=== PATIENT | female | born 1950 | race Caucasian/White ===

== ENCOUNTER 2024-03-10 10:30 | Outpatient (OUT) | payer MEDICARE, MEDICAID, SELFPAY ==
--- NOTE | 2024-03-10 | XR_ITS ---
The [address] [address] Patient Name: ANGELICA SORIANO MRN: [id number] date: 1950 Sex: F Assigned Patient Location: Current Patient Location: .[facility] Accession/Order Number: [id number] Exam Date: 03/10/2024 10:35 Report Date: 03/10/2024 14:26 At the request of: JEANE MICHAEL Procedure: XR ankle RT min 3V PROCEDURE: XR ankle RT min 3V COMPARISON: None. HISTORY: RIGHT ANKLE PAIN FINDINGS: BONES:Acute oblique fracture through the distal fibula at the level of the syndesmosis with distraction up to 2 mm. No additional fracture. No dislocation. Degenerative changes with marginal osteophyte formation. Enthesopathic spurring of the calcaneus SOFT TISSUES:Negative. No visible soft tissue swelling. EFFUSION:None visible. OTHER: Call result initiated through operations. XR/XR ankle RT min 3V IMPRESSION: Acute oblique mildly displaced distal fibular fracture at the syndesmosis level Electronically authenticated by: CECILE WEBER Date: 03/10/2024 14:26
== END 2024-03-10 10:31 | disposition home or self-care (01) ==
LOC: EC 10:31
PROVIDERS: PCP Family Medicine; Visit Provider Orthopaedic Surgery
DX: M25.571 Pain in right ankle and joints of right foot (principal); S89.391A Other physeal fracture of lower end of right fibula, initial encounter for closed fracture
CPT/HCPCS: 73610

== ENCOUNTER 2024-03-10 13:45 | Inpatient (IN) | payer OTHER, SELFPAY ==
[2024-03-10] VITALS (23 sets, daily range): BP systolic 114–133; BP diastolic 73–98; PULSE 67–112; TEMP 36.4–36.8; O2SAT 82–99; BMI 39.9; BMI 43.7
--- NOTE | 2024-03-10 13:49 | ECG_ITS ---
The [facility] Test Date: 2024-03-10 Pat Name: ANGELICA SORIANO Department: Room: - Gender: Female Java Mobile Developer: : 1950 Requested By: MANOJ CHAPMAN Order Number: [id number] Reading MD: GREGORIO RUVALCABA Measurements Intervals Lee Rate: 102 P: -[id number] MD: [id number] QRS: 11 QRSD: 86 T: 189 QT: 330 QTc: 388 Interpretive Statements 60354 Atrial fibrillation with rapid ventricular response with aberrant conduction, or ventricular premature complexes 3234 Anteroseptal myocardial infarction, age undetermined 3614 Cannot rule out inferior myocardial infarction, age undetermined [address] depression, probably digitalis effect 38666 Twave abnormality, possible lateral ischemia or digitalis effect 8102 Low QRS voltage in chest leads 9150 abnormal ECG Electronically Signed On 03-10-2024 22:30:56 EDT by GREGORIO RUVALCABA
--- NOTE | 2024-03-10 13:50 | ED_ITS ---
<Statement entered by Yandel Frederick MD - 03/10/24 18:48> This documentation has been reviewed and approved. Chart was sent to my inbox for administrative and group management purposes. I was the attending physicians working during the patients hospital course. The patient was seen and managed independently by the MLP. I did not personally see or evaluate this patient, nor was I involved in the patient medical decision making process or plans of care. Pt was dispositioned by the MLP with complete independence and I was not involved in planning, or disposition. I was available for consultation should the MLP request during this patients ED stay. HPI HPI - General Adult General Chief complaint: Altered Mental Status Stated complaint: CONFUSION Time Seen by Provider: 03/10/24 13:49 Source: patient, EMR and medical record Mode of arrival: ambulance Limitations: altered mental status History of Present Illness HPI narrative: Patient is a 74-year-old female who presents to the emergency department by EMS from the [facility] where she is currently a resident for evaluation of altered mental status that was noted this afternoon. Patient was found to have a right fibular fracture recently and on [facility] from an orthopedic appointment this afternoon, her son-in-law felt that she was more confused than normal. Last known well per the nurse was 8 AM this morning on giving the patient her morning pills. This nurse did state during report that the patient has been refusing food, refusing to ambulate and talking less over the last several days. No known falls or injuries. Patient is a DNR comfort care. Related Data Home Medications ?Medication ?Instructions ?Recorded ?Confirmed acetaminophen 325 mg capsule 650 mg PO Q4H PRN fever or pain 03/10/24 03/10/24 alprazolam 0.25 mg tablet (Xanax) 0.25 mg PO BID PRN anxiety 03/10/24 03/10/24 apixaban 5 mg tablet (Eliquis) 5 mg PO Q12H 03/10/24 03/10/24 atorvastatin 20 mg tablet 20 mg PO QPM 03/10/24 03/10/24 bisacodyl 10 mg rectal suppository 10 mg DE DAILY PRN constipation 03/10/24 03/10/24 (Laxative (bisacodyl)) bumetanide 2 mg tablet 2 mg PO .BIDAC 03/10/24 03/10/24 duloxetine 60 mg capsule,delayed 60 mg PO DAILY 03/10/24 03/10/24 release folic acid 1 mg tablet 1 mg PO DAILY 03/10/24 03/10/24 levothyroxine 50 mcg tablet 50 mcg PO DAILY 03/10/24 03/10/24 (Euthyrox) magnesium oxide 400 mg PO DAILY 03/10/24 03/10/24 metoprolol tartrate 25 mg tablet 25 mg PO Q12H 03/10/24 03/10/24 mirtazapine 30 mg tablet 30 mg PO QPM 03/10/24 03/10/24 polyethylene glycol 3350 17 17 g PO DAILY 03/10/24 03/10/24 gram/dose oral powder (Miralax) quetiapine 25 mg tablet 25 mg PO QPM 03/10/24 03/10/24 sennosides 8.6 mg tablet (Natural 17.2 mg PO BID 03/10/24 03/10/24 Senna Laxative) spironolactone 25 mg tablet 25 mg PO Q12H 03/10/24 03/10/24 trazodone 50 mg tablet 50 mg PO QPM 03/10/24 03/10/24 Allergies Allergy/AdvReac Type Severity Reaction Status Date / Time bee venom protein (honey bee) Allergy Unknown Verified 03/10/24 15:44 Penicillins Allergy Unknown Verified 03/10/24 15:44 Sulfa (Sulfonamide Allergy Unknown Verified 03/10/24 15:44 Antibiotics) theophylline Allergy Unknown Verified 03/10/24 15:44 Opioid HPI Opioid Management Most Recent Opioid Data: No Data to Display Review of Systems ROS Status of ROS unobtainable due to medical condition and unobtainable due to mental status Exam Narrative Exam Narrative: Gen.: Awake, alert, in no distress, moves all extremities and follows commands, does not answer all questions Head: Normocephalic, atraumatic ENT: Moist mucous membranes Respiratory: No respiratory distress, lungs clear bilaterally Cardio: Irregular, tachycardic Gastrointestinal: Abdomen is soft, distended but nontender, well-healed surgical incision over the midline abdomen Extremities: Moves extremities equally, bruising noted to the right ankle Psych: Normal mood and affect Neuro: Confused to place and time, however answer some questions appropriately with clear speech, moves all extremities Skin: Warm, dry, intact Constitutional Vital Signs, click to edit/add: Last Vital Signs Temp 98.1 F 03/10/24 13:51 Pulse 97 H 03/10/24 16:20 Resp 25 H 03/10/24 15:30 BP 133/98 H 03/10/24 16:14 Pulse Ox 82 L 03/10/24 16:14 O2 Del Method Nasal Cannula 03/10/24 14:30 O2 Flow Rate 2 03/10/24 14:30 Course Vital Signs Vital signs: Vital Signs Temperature 98.1 F 03/10/24 13:51 Pulse Rate 67 03/10/24 13:51 Respiratory Rate 16 03/10/24 13:51 Blood Pressure 120/98 H 03/10/24 13:51 Pulse Oximetry 97 03/10/24 13:51 Oxygen Delivery Method Nasal Cannula 03/10/24 13:51 Oxygen Delivery Flow Rate 2 03/10/24 13:51 Temperature 98.1 F 03/10/24 13:51 Pulse Rate 97 H 03/10/24 16:20 Respiratory Rate 25 H 03/10/24 15:30 Blood Pressure 133/98 H 03/10/24 16:14 Pulse Oximetry 82 L 03/10/24 16:14 Oxygen Delivery Method Nasal Cannula 03/10/24 14:30 Oxygen Delivery Flow Rate 2 03/10/24 14:30 Medical Decision Making MDM Narrative Medical decision making narrative: [facility]'s prison records were sent over with her, she is a DNR comfort care which was signed on 03/01/2024. [facility] records show that she is anticoagulated with Eliquis for history of A-fib. Her nurse at the [facility] was apparently unaware of this. She is hemodynamically stable in the ER, laboratory test, urine specimen were ordered for the patient and she was sent for CT of the brain and chest x-ray. Records from [facility] show that the patient was sent there on 02/22/2024, it was suspected that she had CHF and she underwent a right heart catheterization. She also has a history of cardiomyopathy. Nephrology and general surgery were consulted for the patient while she was hospitalized. She was diuresed while hospitalized. Records from [facility] show her most recent creatinine was 0.56 and today her creatinine is 2.8. She is also found to have mild hypokalemia, urinary tract infection treated with Rocephin. Case is discussed with hospitalist, given the patient's significant change in mental status today associated with an apparently acute kidney injury, she is admitted for hydration and treatment of urinary tract infection. She is hemodynamically stable at time of admission. SUPERVISED APC VISIT, PHYSICIAN ATTESTATION: Based on the medical record the care appears appropriate. ? Medical Records Medical records reviewed: Yes I reviewed the patient's medical records Lab Data Lab results reviewed: Yes I reviewed the patient's lab results Labs: Lab Results 03/10/24 03/10/24 Range/Units 14:07 14:37 WBC 15.1 H (4.0-11.0) 10^3/uL RBC 4.63 (4.20-5.40) 10^6/uL Hgb 15.8 (12.0-16.0) g/dL Hct 47.1 (36.0-48.0) % MCV 101.7 H (81.0-99.0) fL MCH 34.1 H (26.7-34.0) pg MCHC 33.5 (29.9-35.2) g/dL RDW 18.4 H (11.0-15.0) % Plt Count 243 (150-450) 10^3/uL MPV 12.9 (9.5-13.5) fL Neut % (Auto) 83.1 H (43.0-75.0) % Lymph % (Auto) 7.6 L (20.5-60.0) % Faulk % (Auto) 6.7 (1.7-12.0) % Eos % (Auto) 0.1 L (0.9-7.0) % Baso % (Auto) 0.5 (0.2-2.0) % Neut # (Auto) 12.6 H (1.4-6.5) 10^3/uL Lymph # (Auto) 1.2 (1.2-3.8) 10^3/uL Faulk # (Auto) 1.0 H (0.3-0.8) 10^3/uL Eos # (Auto) 0.0 (0.0-0.7) 10^3/uL Baso # (Auto) 0.1 (0.0-0.1) 10^3/uL Abs Immat Gran (auto) 0.31 H (0.00-0.03) 10^3/uL Imm/Tot Granulo (auto) 2.0 H (0.0-0.5) % PT 11.9 H (9.0-11.6) sec INR 1.14 VBG pH 7.521 H (7.330-7.430) VBG pCO2 33.6 L (40.0-52.0) mmHg Sodium 140 (136-145) mmol/L Potassium 3.0 L (3.5-5.1) mmol/L Chloride 96 L (98-107) mmol/L Carbon Dioxide 27.1 (21.0-32.0) mmol/L Anion Gap 19.9 BUN 55.0 H (7.0-18.0) mg/dL Creatinine 2.83 H (0.55-1.02) mg/dL Est GFR ( Amer) 20 L (>=60 mL/min/1.73m^2) Est GFR (Non-Af Amer) 16 L (>=60 mL/min/1.73m^2) BUN/Creatinine Ratio 19.4 Glucose 164 H (74-106) mg/dL Lactate 4.9 H* (0.4-2.0) mmol/L Calcium 10.1 (8.5-10.1) mg/dL Total Bilirubin 2.8 H (0.2-1.0) mg/dL AST 89 H (15-37) U/L ALT 82 H (14-59) U/L Alkaline Phosphatase 95 (46-116) U/L Troponin I High Sens 66.4 H* (4.0-51.3) pg/mL Total Protein 7.3 (6.4-8.2) g/dL Albumin 3.9 (3.4-5.0) g/dL Globulin 3.4 g/dL Albumin/Globulin Ratio 1.1 TSH 15.139 H (0.358-3.740) uIU/mL Free T4 1.09 (0.76-1.46) ng/dL Free T3 2.00 L (2.18-3.98) pg/mL Urine Color Lt. yellow (YELLOW) Urine Clarity Sl cloudy (CLEAR) Urine pH 6.0 (5.0-9.0) Ur Specific [place] 1.020 (1.005-1.025) Urine Protein Negative (NEG/TRACE) mg/dL Urine Glucose (UA) Negative (NEGATIVE) mg/dL Urine Ketones Trace A (NEGATIVE) mg/dL Urine Occult Blood Trace-i (NEGATIVE) Urine Nitrite Negative (NEGATIVE) Urine Bilirubin Small A (NEGATIVE) Urine Urobilinogen 1.0 (0.2-1.0) EU/dL Ur Leukocyte Esterase Moderate A (NEGATIVE) Urine RBC 0-2 (0-2) #/HPF Urine WBC 50-75 A (NONE SEEN) #/HPF Ur Squamous Epith Cells Moderate A (NONE/RARE) #/LPF Ur Transition Epith Cell Few A (NONE SEEN) #/LPF Urine Crystals None seen (None Seen) #/HPF Urine Bacteria Large A (NONE SEEN) #/HPF Urine Casts Seen A (NONE SEEN) #/LPF Hyaline Casts Moderate Urine Mucus Small A (NONE SEEN) Urine Yeast Seen A (NONE SEEN) Ur Culture Indicated? Yes Imaging Data CT scan - head: Attestation: I have reviewed the pertinent imaging results. Radiologist's impression: ITS Impressions Chest X-Ray 03/10/24 14:30 IMPRESSION: Clear lungs Electronically authenticated by: CECILE WEBER Date: 03/10/2024 14:[address] 03/10/24 14:30 IMPRESSION: 1. Stable CT of the head. No acute findings. No hemorrhage or mass. 2. Brain atrophy is stable. No hydrocephalus. Electronically authenticated by: YUMIKO CHEUNG Date: 03/10/2024 14:56 ECG Data Attestation: I personally reviewed and interpreted this ECG as follows: (A-fib with RVR at a rate of 102, artifact noted with no obvious acute ST elevation. EKG reviewed by attending physician) Discharge Plan Discharge Chief Complaint: Altered Mental Status Clinical Impression: Altered mental status, Acute kidney injury, Acute UTI, Hypokalemia Patient Disposition: Admitted as Observation Time of Disposition Decision: 15:26 Condition: Good
[2024-03-10] MEDS: 0.9 % SODIUM CHLORIDE 1,000 ML 1000 ML IV (14:12)
[2024-03-10 14:13] LABS: Basophils Absolute Auto 0.1 10^3/uL (0.0-0.1); Basophils Percent Auto 0.5 % (0.2-2.0); Eosinophils Percent Auto 0.1 % (0.9-7.0); Hematocrit 47.1 % (36.0-48.0); Hemoglobin 15.8 g/dL (12.0-16.0); Immature Granulocytes Abs Auto 0.31 10^3/uL (0.00-0.03); Lymphocytes Absolute Auto 1.2 10^3/uL (1.2-3.8); Lymphocytes Percent Auto 7.6 % (20.5-60.0); Mean Corpuscular HGB Conc 33.5 g/dL (29.9-35.2); Mean Corpuscular Hemoglobin 34.1 pg (26.7-34.0); Mean Corpuscular Volume 101.7 fL (81.0-99.0); Mean Platelet Volume 12.9 fL (9.5-13.5); Monocytes Percent Auto 6.7 % (1.7-12.0); Neutrophils Absolute Auto 12.6 10^3/uL (1.4-6.5); Neutrophils Percent Auto 83.1 % (43.0-75.0); Platelet Count 243 10^3/uL (150-450); Red Blood Count 4.63 10^6/uL (4.20-5.40); Red Cell Distribution Width 18.4 % (11.0-15.0); White Blood Count 15.1 10^3/uL (4.0-11.0)
[2024-03-10 14:17] LABS: PCO2 VBG 33.6 mmHg (40.0-52.0); pH VBG 7.521 (7.330-7.430)
[2024-03-10 14:29] LABS: INR 1.14; Prothrombin Time 11.9 sec (9.0-11.6)
--- NOTE | 2024-03-10 14:30 | CT_ITS ---
[address] [address] Patient Name: ANGELICA SORIANO MRN: [id number] date: 1950 Sex: F Assigned Patient Location: ED.MAIN Current Patient Location: Accession/Order Number: [id number] Exam Date: 03/10/2024 14:21 Report Date: 03/10/2024 14:56 At the request of: FABIAN KARIMI Procedure: CT head/brain wo con CT head without contrast, 03/10/2024. HISTORY: Altered mental status. Confusion. COMPARISON: CT head, 11/06/2021. TECHNIQUE: Noncontrast axial CT images obtained of the head. Reconstructions obtained in the sagittal and coronal planes. Dose reduction techniques were achieved by using automated exposure control and/or adjustment of mA and/or kV according to patient size and/or use of iterative reconstruction technique. FINDINGS: Paranasal sinuses are clear. Middle ear cavities clear. Mastoid air cells are clear. No skull lesion. Nasopharynx normal. Prior cataract surgery. Extracranial soft tissue structures unremarkable. Moderate brain atrophy. No obstructive hydrocephalus. No extra-axial fluid collection. No acute hemorrhage. No mass. CT/CT head/brain wo con IMPRESSION: 1. Stable CT of the head. No acute findings. No hemorrhage or mass. 2. Brain atrophy is stable. No hydrocephalus. Electronically authenticated by: YUMIKO CHEUNG Date: 03/10/2024 14:56
--- NOTE | 2024-03-10 14:30 | XR_ITS ---
The [address] [address] Patient Name: ANGELICA SORIANO MRN: [id number] date: 1950 Sex: F Assigned Patient Location: ED.MAIN Current Patient Location: ER Accession/Order Number: [id number] Exam Date: 03/10/2024 14:21 Report Date: 03/10/2024 14:56 At the request of: FABIAN KARIMI Procedure: XR chest 1V EXAMINATION: XR chest 1V HISTORY: Altered mental status COMPARISON: No relevant comparison available. TECHNIQUE: AP portable FINDINGS: LUNGS: No significant pulmonary parenchymal abnormalities. VASCULATURE: No increased pulmonary vasculature. PLEURA: No pneumothorax, effusion, or pleural thickening. Elevation the right hemidiaphragm CARDIAC: No cardiomegaly or cardiac silhouette abnormality. MEDIASTINUM: No visible mass or adenopathy. 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 OTHER: Negative. XR/XR chest 1V IMPRESSION: Clear lungs Electronically authenticated by: CECILE WEBER Date: 03/10/2024 14:56
[2024-03-10 14:33] LABS: Alanine Aminotransferase 82 U/L (14-59); Albumin Globulin Ratio 1.1; Albumin Level 3.9 g/dL (3.4-5.0); Alkaline Phosphatase 95 U/L (46-116); Anion Gap 19.9; Aspartate Amino Transferase 89 U/L (15-37); BUN Creatinine Ratio 19.4; Bilirubin Total 2.8 mg/dL (0.2-1.0); Calcium 10.1 mg/dL (8.5-10.1); Carbon Dioxide 27.1 mmol/L (21.0-32.0); Chloride 96 mmol/L (98-107); Estimated GFR (African America 20 (>=60 mL/min/1.73m^2); Estimated GFR (Non-African Ame 16 (>=60 mL/min/1.73m^2); Globulin 3.4 g/dL; Glucose 164 mg/dL (74-106); Sodium 140 mmol/L (136-145); Total Protein 7.3 g/dL (6.4-8.2)
[2024-03-10 14:42] LABS: Thyroid Stimulating Hormone 15.139 uIU/mL (0.358-3.740)
[2024-03-10 14:47] LABS: Troponin I High Sensitivity 66.4 pg/mL (4.0-51.3)
[2024-03-10 15:02] LABS: Lactate/Lactic Acid 4.9 mmol/L (0.4-2.0)
[2024-03-10 15:05] LABS: Bilirubin Urine SMALL (NEGATIVE); Blood Urine TRACE-I (NEGATIVE); Clarity Urine SL CLOUDY (CLEAR); Color Urine LT. YELLOW (YELLOW); Glucose Urine UA NEGATIVE (NEGATIVE); Ketones Urine TRACE mg/dL (NEGATIVE); Leukocyte Esterase Urine MODERATE (NEGATIVE); Nitrite Urine NEGATIVE (NEGATIVE); Protein Urine NEGATIVE (NEG/TRACE)
[2024-03-10 15:06] LABS: Urine Microscopic Indicated YES
[2024-03-10 15:14] LABS: WBC Urine 50-75 #/HPF (NONE SEEN)
[2024-03-10 15:15] LABS: Bacteria Urine LARGE #/HPF (NONE SEEN); Cast Seen? SEEN #/LPF (NONE SEEN); Crystals Seen? None Seen #/HPF (None Seen); Hyaline Casts Urine MODERATE; Mucus Urine SMALL (NONE SEEN); RBC Urine 0-2 #/HPF (0-2); Squamous Epithelial Cell Urine MODERATE #/LPF (NONE/RARE); Transitional Epi Cells Urine FEW #/LPF (NONE SEEN)
[2024-03-10 15:16] LABS: Urine Culture Indicated YES
[2024-03-10] MEDS: CEFTRIAXONE 1,000 MG in 0.9 % SODIUM CHLORIDE 50 ML 100 MG IV (15:37)
--- NOTE | 2024-03-10 15:55 | US_ITS ---
The [address] [address] Patient Name: ANGELICA SORIANO MRN: [id number] date: 1950 Sex: F Assigned Patient Location: MS Current Patient Location: Accession/Order Number: [id number] Exam Date: 03/10/2024 17:30 Report Date: 03/10/2024 20:51 At the request of: SHAIKH LAURA Procedure: US right upper quadrant EXAM: US right upper quadrant HISTORY: Liver and GB . History of possible cholecystectomy. COMPARISON: None. TECHNIQUE: Transabdominal grayscale and color Doppler imaging of the right upper quadrant of the abdomen FINDINGS: The liver is diffusely echogenic. The gallbladder is surgically absent. The pancreas is obscured by bowel gas. The right kidney is normal. The common bile duct measures 5 mm. US/US right upper quadrant IMPRESSION: 1. Hepatic steatosis. 2. Nonvisualization of the gallbladder, likely secondary to previous cholecystectomy. Recommend clinical correlation. Electronically authenticated by: DARREN INIGUEZ Date: 03/10/2024 20:51
[2024-03-10] MEDS: POTASSIUM CHLORIDE 10 MEQ ER TABLET 20 MEQ PO (16:05)
[2024-03-10 16:29] LABS: Free T4 1.09 ng/dL (0.76-1.46)
[2024-03-10] MEDS: LACTATED RINGER'S SOLUTION 1,000 ML 100 ML IV (17:27)
[2024-03-10 17:36] LABS: Ammonia 30 umol/L (11-32)
--- NOTE | 2024-03-10 17:38 | PM.HP ---
HPI H&P: HPI History of Present Illness Chief complaint: CONFUSION UTI AMANDA Narrative: 74 y o female was sent from care home for change in mental status for further evaluation. Patient is a DNR CC, and is now in acute rehab from recent hospital admission at [facility] for acute on chronic diastolic HF. She was discharged on oral bumex for it. Work up in ED revealed AMANDA, lactic acidosis, elevated troponin and leukocytosis. She appeared clinically dry and it is our impression that she may have had overdiuresis. She also has evidence of UTI and reports lower abdominal pain, dysuria. Patient was alert and awake at the time of evaluation but gave me confusing answers and not completely oriented to place and time. She also appeared short of breath and was tachypneic on exam but denied feeling SOB. Patient denies alcohol use but it was reported by family that she is a heavy alcohol user. There is no known hx of liver cirrhosis but she seemed to have dilated spider veins over her abdomen and her abdomen was quite distended. Opioid HPI Opioid Management Most Recent Pain and Opioid Data: Last Pain Assessment 03/10/24 17:51 Last ORT Total Score 3 03/10/24 17:02 Last ORT Risk Category Low Risk 03/10/24 17:02 Review of Systems ROS Narrative Unreliable ROS due to patient's confusion Status of ROS 10 or more systems reviewed and unremarkable except as noted in history and below [facility] Medical History (Updated 03/10/24 @ 19:12 by Shaikh Gunnar MD) Diabetes ?E11.9 - Type 2 diabetes mellitus without complications (ICD-10) Arthritis ?M19.90 - Unspecified osteoarthritis, unspecified site (ICD-10) Parkinsons disease ?G20.A1 - Parkinson's disease without dyskinesia, without mention of fluctuations (ICD-10) Asthma ?J45.909 - Unspecified asthma, uncomplicated (ICD-10) COPD (chronic obstructive pulmonary disease) ?J44.9 - Chronic obstructive pulmonary disease, unspecified (ICD-10) Hypothyroid ?E03.9 - Hypothyroidism, unspecified (ICD-10) CAD (coronary artery disease) ?I25.10 - Atherosclerotic heart disease of [place] coronary artery without angina pectoris (ICD-10) Paroxysmal A-fib ?I48.0 - Paroxysmal atrial fibrillation (ICD-10) HTN (hypertension) ?I10 - Essential (primary) hypertension (ICD-10) (HFpEF) heart failure with preserved ejection fraction ?I50.30 - Unspecified diastolic (congestive) heart failure (ICD-10) Morbid obesity ?E66.01 - Morbid (severe) obesity due to excess calories (ICD-10) Surgical History (Updated 03/10/24 @ 18:40 by Anita Palomo LPN) History of total knee replacement ?Z96.659 - Presence of unspecified artificial knee joint (ICD-10) Social History (Updated 03/10/24 @ 18:38 by Shaikh Gunnar MD) Within the past year, how often did you have a drink containing alcohol: 4 or more times a week Smoking status: Former smoker Non-prescribed substance use: denies use Meds Home Medications and Allergies Home Medications ?Medication ?Instructions ?Recorded ?Confirmed ?Type acetaminophen 325 mg capsule 650 mg PO Q4H PRN fever or pain 03/10/24 03/10/24 History alprazolam 0.25 mg tablet (Xanax) 0.25 mg PO BID PRN anxiety 03/10/24 03/10/24 History apixaban 5 mg tablet (Eliquis) 5 mg PO Q12H 03/10/24 03/10/24 History atorvastatin 20 mg tablet 20 mg PO QPM 03/10/24 03/10/24 History bisacodyl 10 mg rectal suppository 10 mg NE DAILY PRN constipation 03/10/24 03/10/24 History (Laxative (bisacodyl)) bumetanide 2 mg tablet 2 mg PO .BIDAC 03/10/24 03/10/24 History duloxetine 60 mg capsule,delayed 60 mg PO DAILY 03/10/24 03/10/24 History release folic acid 1 mg tablet 1 mg PO DAILY 03/10/24 03/10/24 History levothyroxine 50 mcg tablet 50 mcg PO DAILY 03/10/24 03/10/24 History (Euthyrox) magnesium oxide 400 mg PO DAILY 03/10/24 03/10/24 History metoprolol tartrate 25 mg tablet 25 mg PO Q12H 03/10/24 03/10/24 History mirtazapine 30 mg tablet 30 mg PO QPM 03/10/24 03/10/24 History polyethylene glycol 3350 17 17 g PO DAILY 03/10/24 03/10/24 History gram/dose oral powder (Miralax) quetiapine 25 mg tablet 25 mg PO QPM 03/10/24 03/10/24 History sennosides 8.6 mg tablet (Natural 17.2 mg PO BID 03/10/24 03/10/24 History Senna Laxative) spironolactone 25 mg tablet 25 mg PO Q12H 03/10/24 03/10/24 History trazodone 50 mg tablet 50 mg PO QPM 03/10/24 03/10/24 History Allergies Allergy/AdvReac Type Severity Reaction Status Date / Time bee venom protein (honey bee) Allergy Unknown Verified 03/10/24 15:44 Penicillins Allergy Unknown Verified 03/10/24 15:44 Sulfa (Sulfonamide Allergy Unknown Verified 03/10/24 15:44 Antibiotics) theophylline Allergy Unknown Verified 03/10/24 15:44 Exam Constitutional Vital Signs, click to edit/add: Last Vital Signs Temp 97.8 F 03/10/24 17:13 Pulse 92 H 03/10/24 17:13 Resp 20 03/10/24 17:13 BP 133/98 H 03/10/24 17:13 Pulse Ox 99 03/10/24 17:13 O2 Del Method Nasal Cannula 03/10/24 17:13 O2 Flow Rate 2 03/10/24 17:13 Exam limitations: altered mental status General appearance: cooperative and ill appearing Nutritional appearance: obese HENMT Common normals: normocephalic and head/scalp atraumatic Respiratory Common normals: normal respiratory effort, no use of accessory muscles and clear to auscultation bilaterally Effort & inspection: tachypneic Other: Appears SOB. Cardio Common normals: regular rate, regular rhythm, S1 normal heart sound and S2 normal heart sound GI Other: Lower abdominal tenderness. Abdominal distention. Audible bowel sounds. Dilated superficial veins. Extremity Common normals: normal to inspection and full ROM Neuro Common normals: moves all extremities Sensorium/orientation: orientation impaired Speech: speech normal Gait (neuro): unable to assess gait Psych Common normals: cooperative and speech normal Attitude: calm Results Labs Labs: Short CBC 03/10/24 Range/Units 14:07 WBC 15.1 H (4.0-11.0) 10^3/uL Hgb 15.8 (12.0-16.0) g/dL Hct 47.1 (36.0-48.0) % Plt Count 243 (150-450) 10^3/uL BMP 03/10/24 14:07 Sodium 140 Potassium 3.0 L Chloride 96 L Carbon Dioxide 27.1 BUN 55.0 H Creatinine 2.83 H Glucose 164 H Calcium 10.1 Liver Function 03/10/24 Range/Units 14:07 Total Bilirubin 2.8 H (0.2-1.0) mg/dL AST 89 H (15-37) U/L ALT 82 H (14-59) U/L Alkaline Phosphatase 95 (46-116) U/L Albumin 3.9 (3.4-5.0) g/dL Urine 03/10/24 Range/Units 14:37 Urine Color Lt. yellow (YELLOW) Urine Clarity Sl cloudy (CLEAR) Urine pH 6.0 (5.0-9.0) Ur Specific [place] 1.020 (1.005-1.025) Urine Protein Negative (NEG/TRACE) mg/dL Urine Glucose (UA) Negative (NEGATIVE) mg/dL ABG ABG results: 03/10/24 14:07 VBG pH 7.521 H VBG pCO2 33.6 L Assessment and Plan Assessment and Plan (1) Sepsis: Assessment and Plan: SIRS (HR> 90, RR> 30, WBC 15K) - multiorgan dysfunction - AMANDA and metabolic encephalopathy. qsofa (AMS, RR> 22) Source of infection - UTI Received 1 L IVF bolus in ED. Genlte IV hydration as risk of volume overload. F/u blood and urine cx. C/w IVF rocephin. Qualifiers: Sepsis type: sepsis due to unspecified organism Sepsis acute organ dysfunction status: with acute organ dysfunction Severe sepsis acute organ dysfunction type: acute renal failure Severe sepsis shock status: without septic shock Acute renal failure type: unspecified Qualified Code(s): A41.9 - Sepsis, unspecified organism; R65.20 - Severe sepsis without septic shock; N17.9 - Acute kidney failure, unspecified (2) Metabolic encephalopathy: Assessment and Plan: Likely due to UTI/AMANDA. Check ammonia levels. CTH normal. (3) Acute kidney injury: Assessment and Plan: Normal renal function at baseline. Presented with serum creatinine of 2.8 likely from dehydration/overdiuresis. Started on IVF. (4) Acute UTI: Assessment and Plan: Abnormal UA, resulting in metabolic encephalopathy. Started on IV rocephin. F/u urine cx. (5) Hypokalemia: Assessment and Plan: Ordered IV and po potassium. Monitor and replete as needed. (6) Lactic acidosis: Assessment and Plan: likely due to dehydration and hypovolemia. Started on IVF. Repeat lactate. (7) Elevated troponin: Assessment and Plan: Likely due to AMANDA/dehydration. Monitor (8) Transaminitis: Assessment and Plan: Elevated Liver enzymes, heavy alcohol use reported by family. Check Liver US. (9) (HFpEF) heart failure with preserved ejection fraction: Assessment and Plan: Recent hospital admission for Acute on chronic diastolic HF. Currently dehydrated likely from over diuresis. On IVF. Qualifiers: Heart failure chronicity: chronic Qualified Code(s): I50.32 - Chronic diastolic (congestive) heart failure (10) HTN (hypertension): Assessment and Plan: Hold aldactone and bumex. C/w Lopressor. Qualifiers: Hypertension type: primary hypertension Qualified Code(s): I10 - Essential (primary) hypertension (11) Paroxysmal A-fib: Assessment and Plan: In NSR. On Eliquis for stroke px. (12) CAD (coronary artery disease): Assessment and Plan: Elevated troponins. No CP, or SOB. Monitor for now. Qualifiers: Associated angina: without angina Coronary Disease-Associated Artery/Lesion type: [place] artery [place] vs. transplanted heart: [place] heart Qualified Code(s): I25.10 - Atherosclerotic heart disease of [place] coronary artery without angina pectoris (13) Hypothyroid: Assessment and Plan: c/w levothyroxine Qualifiers: Hypothyroidism type: unspecified Qualified Code(s): E03.9 - Hypothyroidism, unspecified (14) Morbid obesity: Assessment and Plan: BMI of 43. Will benefit from weight loss. Urinary Catheter Management Urinary Catheter Management Straight: Cath placed during this visit: yes Urethral indwelling: Yes Reason for continuing: measure accurate output Insertion date: 03/10/24 Insertion time: 14:45
[2024-03-10 17:56] LABS: Lactate/Lactic Acid 2.5 mmol/L (0.4-2.0)
[2024-03-10 18:01] LABS: Troponin I High Sensitivity 66.1 pg/mL (4.0-51.3)
[2024-03-10] MEDS: POTASSIUM CHLORIDE 40 MEQ in 0.9 % SODIUM CHLORIDE 250 ML 60 MEQ IV (18:26)
--- NOTE | 2024-03-10 18:37 | XR_ITS ---
The [address] [address] Patient Name: ANGELICA SORIANO MRN: [id number] date: 1950 Sex: F Assigned Patient Location: [place] Current Patient Location: Accession/Order Number: [id number] Exam Date: 03/10/2024 19:15 Report Date: 03/11/2024 04:23 At the request of: SHAIKH LAURA Procedure: XR abdomen 1V EXAMINATION: XR abdomen 1V HISTORY: Abdominal distention COMPARISON: No relevant comparison available. FINDINGS: BOWEL GAS PATTERN: Air-filled loops of small and large bowel without significant dilation or deviation. CALCIFICATIONS: None significant. OTHER: Negative. No abnormal gaseous collections. XR/XR abdomen 1V IMPRESSION: 1. No convincing bowel obstruction or ileus. 2. Evaluation is limited by patient body habitus. Electronically authenticated by: JEANE SRINIVASAN Date: 03/11/2024 04:23
[2024-03-10] MEDS: SENNOSIDES 8.6 MG TABLET 17.2 MG PO (20:32)
[2024-03-10] MEDS: METOPROLOL TARTRATE 25 MG TABLET PO (20:32)
[2024-03-10] MEDS: MIRTAZAPINE 15 MG TABLET 30 MG PO (20:32)
[2024-03-10] MEDS: APIXABAN 5 MG TABLET PO (20:32)
[2024-03-10] MEDS: QUETIAPINE FUMARATE 25 MG TABLET PO (20:32)
[2024-03-10] MEDS: TRAZODONE HCL 50 MG TABLET PO (20:32)
[2024-03-10 23:11] LABS: Troponin I High Sensitivity 65.9 pg/mL (4.0-51.3)
[2024-03-10] MEDS: ALPRAZOLAM 0.25 MG TABLET PO (23:16)
[2024-03-10] MEDS: OXYCODONE HCL 5 MG TABLET PO (23:16)
[2024-03-11] MEDS: LACTATED RINGER'S SOLUTION 1,000 ML 100 ML IV ×2 (00:28→12:18)
[2024-03-11] MEDS: OXYCODONE HCL 5 MG TABLET PO ×2 (05:36→12:14)
[2024-03-11] MEDS: LEVOTHYROXINE SODIUM 25 MCG TABLET 50 MCG PO (05:36)
[2024-03-11] MEDS: ALPRAZOLAM 0.25 MG TABLET PO ×2 (06:06→20:09)
[2024-03-11] MEDS: ACETAMINOPHEN 325 MG TABLET 650 MG PO (06:07)
[2024-03-11 06:17] LABS: Basophils Absolute Auto 0.1 10^3/uL (0.0-0.1); Basophils Percent Auto 0.4 % (0.2-2.0); Eosinophils Absolute Auto 0.1 10^3/uL (0.0-0.7); Eosinophils Percent Auto 0.7 % (0.9-7.0); Hematocrit 40.6 % (36.0-48.0); Hemoglobin 13.2 g/dL (12.0-16.0); Immature Granulocytes Abs Auto 0.16 10^3/uL (0.00-0.03); Immature Granulocytes Pct Auto 1.3 % (0.0-0.5); Lymphocytes Absolute Auto 1.7 10^3/uL (1.2-3.8); Lymphocytes Percent Auto 13.2 % (20.5-60.0); Mean Corpuscular HGB Conc 32.5 g/dL (29.9-35.2); Mean Corpuscular Hemoglobin 33.7 pg (26.7-34.0); Mean Corpuscular Volume 103.6 fL (81.0-99.0); Mean Platelet Volume 12.4 fL (9.5-13.5); Monocytes Absolute Auto 1.2 10^3/uL (0.3-0.8); Monocytes Percent Auto 9.8 % (1.7-12.0); Neutrophils Absolute Auto 9.4 10^3/uL (1.4-6.5); Neutrophils Percent Auto 74.6 % (43.0-75.0); Platelet Count 155 10^3/uL (150-450); Red Blood Count 3.92 10^6/uL (4.20-5.40); Red Cell Distribution Width 18.3 % (11.0-15.0); White Blood Count 12.6 10^3/uL (4.0-11.0)
[2024-03-11 06:49] LABS: Alanine Aminotransferase 62 U/L (14-59); Albumin Globulin Ratio 1.1; Albumin Level 3.2 g/dL (3.4-5.0); Alkaline Phosphatase 76 U/L (46-116); Anion Gap 13.7; Aspartate Amino Transferase 60 U/L (15-37); BUN Creatinine Ratio 23.3; Bilirubin Total 1.6 mg/dL (0.2-1.0); Calcium 9.3 mg/dL (8.5-10.1); Carbon Dioxide 28.7 mmol/L (21.0-32.0); Chloride 102 mmol/L (98-107); Estimated GFR (African America 25 (>=60 mL/min/1.73m^2); Estimated GFR (Non-African Ame 21 (>=60 mL/min/1.73m^2); Glucose 122 mg/dL (74-106); Potassium 3.4 mmol/L (3.5-5.1); Sodium 141 mmol/L (136-145); Total Protein 6.2 g/dL (6.4-8.2)
[2024-03-11 07:44] VITALS: BP 131/75; PULSE 80; TEMP 36.7; O2SAT 93
[2024-03-11] MEDS: DULOXETINE HCL 60 MG CAPSULE.DR PO (09:30)
[2024-03-11] MEDS: APIXABAN 5 MG TABLET PO ×2 (09:30→20:06)
[2024-03-11] MEDS: MAGNESIUM OXIDE 400 MG TABLET PO (09:30)
[2024-03-11] MEDS: SENNOSIDES 8.6 MG TABLET 17.2 MG PO ×2 (09:30→20:06)
[2024-03-11] MEDS: METOPROLOL TARTRATE 25 MG TABLET PO ×2 (09:30→20:06)
[2024-03-11] MEDS: FOLIC ACID 1 MG TABLET PO (09:30)
--- NOTE | 2024-03-11 09:41 | SWNOTE1 ---
SW reached out to [facility] and pt is there skilled. Pt is a precert to return.
--- NOTE | 2024-03-11 10:03 | PM.IMPN1 ---
Progress Note: A&P Assessment and Plan (1) Sepsis: Assessment and Plan: Stable hemodynamics. Decreased IVF to 100 ml/hr C/w IV rocephin F/u blood and urine cx. Qualifiers: Sepsis type: sepsis due to unspecified organism Sepsis acute organ dysfunction status: with acute organ dysfunction Severe sepsis acute organ dysfunction type: acute renal failure Acute renal failure type: unspecified Severe sepsis shock status: without septic shock Qualified Code(s): A41.9 - Sepsis, unspecified organism; R65.20 - Severe sepsis without septic shock; N17.9 - Acute kidney failure, unspecified (2) Metabolic encephalopathy: Assessment and Plan: Mental status improved today. Still disoriented to time but overall considerably better from admission (3) Acute kidney injury: Assessment and Plan: Renal fx improving with IV hydration. Cr is now 2.3 C/w IVF. Monitor UO, serum creatinine closely. (4) Acute UTI: Assessment and Plan: C/w IV rocephin. F/u urine cx. (5) Hypokalemia: Assessment and Plan: monitor, replete as needed. (6) Lactic acidosis: Assessment and Plan: Improved/trended down with hydration. (7) Elevated troponin: Assessment and Plan: Likely due to AMANDA/dehydration. no CP, SOB or cardiac symptoms. Monitor. (8) Transaminitis: Assessment and Plan: US shows hepatic steatosis. Heavy alcohol use reported by family. Monitor for alcohol withdrawal. (9) (HFpEF) heart failure with preserved ejection fraction: Assessment and Plan: Dehydrated. On IVF. Monitor volume status closely while on IVF to avoid risk of volume overload. Qualifiers: Heart failure chronicity: chronic Qualified Code(s): I50.32 - Chronic diastolic (congestive) heart failure (10) HTN (hypertension): Assessment and Plan: BP stable. C/w lopressor. Qualifiers: Hypertension type: primary hypertension Qualified Code(s): I10 - Essential (primary) hypertension (11) Paroxysmal A-fib: Assessment and Plan: C/w lopressor/eliquis. (12) CAD (coronary artery disease): Assessment and Plan: No CP, SOB, palpitations. Elevated troponin likely due to AMANDA/sepsis. Monitor. Qualifiers: Coronary Disease-Associated Artery/Lesion type: [place] artery [place] vs. transplanted heart: [place] heart Associated angina: without angina Qualified Code(s): I25.10 - Atherosclerotic heart disease of [place] coronary artery without angina pectoris (13) Hypothyroid: Assessment and Plan: c/w levothyroxine Qualifiers: Hypothyroidism type: unspecified Qualified Code(s): E03.9 - Hypothyroidism, unspecified (14) Morbid obesity: Assessment and Plan: She will benefit from weight loss/lifestyle measures/dietary restrictions. Defer this to PCP as she is acutely sick and has increased metabolic needs. Internal Medicine - PN: Subj Subjective Interval history: Seen and examined. No overnight events. Still confused and disoriented but considerably better compared to admission. Answering questions appropriately. Exam Constitutional Vital Signs, click to edit/add: Last Vital Signs Temp 98.0 F 03/11/24 07:44 Pulse 80 03/11/24 07:44 Resp 20 03/11/24 07:44 BP 131/75 03/11/24 07:44 Pulse Ox 93 L 03/11/24 07:44 O2 Del Method Room Air 03/11/24 07:44 O2 Flow Rate 2 03/10/24 23:33 General appearance: cooperative, comfortable and ill appearing Nutritional appearance: obese HENMT Common normals: normocephalic and head/scalp atraumatic Respiratory Common normals: normal respiratory effort, no use of accessory muscles and clear to auscultation bilaterally Effort & inspection: able to speak in complete sentences Cardio Common normals: regular rate, regular rhythm, S1 normal heart sound and S2 normal heart sound GI Common normals: soft to palpation, non-tender and no hepatosplenomegaly Inspection: abdominal distension Extremity Common normals: normal to inspection and full ROM Neuro Common normals: moves all extremities, no focal motor deficits and no sensory deficits noted Sensorium/orientation: orientation impaired Psych Common normals: cooperative, denies homicidal ideation and denies suicidal ideation Appearance: grossly normal Attitude: calm Speech: normal speech Internal Medicine - PN: Obj Da Labs Labs: Laboratory Results - last 24 hr 03/10/24 03/10/24 03/10/24 14:07 14:37 17:10 WBC 15.1 H RBC 4.63 Hgb 15.8 Hct 47.1 MCV 101.7 H MCH 34.1 H MCHC 33.5 RDW 18.4 H Plt Count 243 MPV 12.9 Neut % (Auto) 83.1 H Lymph % (Auto) 7.6 L [place] % (Auto) 6.7 Eos % (Auto) 0.1 L Baso % (Auto) 0.5 Neut # (Auto) 12.6 H Lymph # (Auto) 1.2 [place] # (Auto) 1.0 H Eos # (Auto) 0.0 Baso # (Auto) 0.1 Abs Immat Gran (auto) 0.31 H Imm/Tot Granulo (auto) 2.0 H PT 11.9 H INR 1.14 VBG pH 7.521 H VBG pCO2 33.6 L Sodium 140 Potassium 3.0 L Chloride 96 L Carbon Dioxide 27.1 Anion Gap 19.9 BUN 55.0 H Creatinine 2.83 H Est GFR ( Amer) 20 L Est GFR (Non-Af Amer) 16 L BUN/Creatinine Ratio 19.4 Glucose 164 H Lactate 4.9 H* 2.5 H* Calcium 10.1 Total Bilirubin 2.8 H AST 89 H ALT 82 H Alkaline Phosphatase 95 Ammonia 30 Troponin I High Sens 66.4 H* 66.1 H* Total Protein 7.3 Albumin 3.9 Globulin 3.4 Albumin/Globulin Ratio 1.1 TSH 15.139 H Free T4 1.09 Free T3 2.00 L Urine Color Lt. yellow Urine Clarity Sl cloudy Urine pH 6.0 Ur Specific [place] 1.020 Urine Protein Negative Urine Glucose (UA) Negative Urine Ketones Trace A Urine Occult Blood Trace-i Urine Nitrite Negative Urine Bilirubin Small A Urine Urobilinogen 1.0 Ur Leukocyte Esterase Moderate A Urine RBC 0-2 Urine WBC 50-75 A Ur Squamous Epith Cells Moderate A Ur Transition Epith Cell Few A Urine Crystals None seen Urine Bacteria Large A Urine Casts Seen A Hyaline Casts Moderate Urine Mucus Small A Urine Yeast Seen A Ur Culture Indicated? Yes 03/10/24 03/11/24 22:40 05:56 WBC 12.6 H RBC 3.92 L Hgb 13.2 Hct 40.6 MCV 103.6 H MCH 33.7 MCHC 32.5 RDW 18.3 H Plt Count 155 MPV 12.4 Neut % (Auto) 74.6 Lymph % (Auto) 13.2 L [place] % (Auto) 9.8 Eos % (Auto) 0.7 L Baso % (Auto) 0.4 Neut # (Auto) 9.4 H Lymph # (Auto) 1.7 [place] # (Auto) 1.2 H Eos # (Auto) 0.1 Baso # (Auto) 0.1 Abs Immat Gran (auto) 0.16 H Imm/Tot Granulo (auto) 1.3 H PT INR VBG pH VBG pCO2 Sodium 141 Potassium 3.4 L Chloride 102 Carbon Dioxide 28.7 Anion Gap 13.7 BUN 54.0 H Creatinine 2.32 H Est GFR ( Amer) 25 L Est GFR (Non-Af Amer) 21 L BUN/Creatinine Ratio 23.3 Glucose 122 H Lactate Calcium 9.3 Total Bilirubin 1.6 H AST 60 H ALT 62 H Alkaline Phosphatase 76 Ammonia Troponin I High Sens 65.9 H* Total Protein 6.2 L Albumin 3.2 L Globulin 3.0 Albumin/Globulin Ratio 1.1 TSH Free T4 Free T3 Urine Color Urine Clarity Urine pH Ur Specific [place] Urine Protein Urine Glucose (UA) Urine Ketones Urine Occult Blood Urine Nitrite Urine Bilirubin Urine Urobilinogen Ur Leukocyte Esterase Urine RBC Urine WBC Ur Squamous Epith Cells Ur Transition Epith Cell Urine Crystals Urine Bacteria Urine Casts Hyaline Casts Urine Mucus Urine Yeast Ur Culture Indicated? Urinary Catheter Management Urinary Catheter Management Straight: Cath placed during this visit: yes Urethral indwelling: Yes Reason for continuing: measure accurate output Insertion date: 03/10/24 Insertion time: 14:45
--- NOTE | 2024-03-11 10:40 | CM.NOTE ---
Rounds made with Dr. Maher, pt still having confusion on otherwise responds to questions. No discharge today, continue IV antibiotics, labs and close monitoring.
--- NOTE | 2024-03-11 10:45 | SWNOTE1 ---
SW spoke to OT as they were looking for weight bearing status, nurse is unsure as well. I called and spoke with Rose at [facility] and was transferred to [place] the nurse at [facility]. She stated pt is weight bearing as tolerated on Right lower extremity as of the . RYLAN requested she fax over the order and SW to place on chart. RYLAN called and let OT know. RYLAN also tiger texted nurse and Dr. Maher.
--- NOTE | 2024-03-11 10:58 | SWNOTE1 ---
SW did receive fax from [facility] with Weight bearing status. It was taken to doctor and placed on chart.
--- NOTE | 2024-03-11 11:27 | CM.NOTE ---
Important Message From Medicare discussed with pt, pt verbalizes understanding and signs paper. Original given to pt and copy placed on pt's chart.
[2024-03-11 11:28] VITALS: O2SAT 96
--- NOTE | 2024-03-11 11:29 | SWNOTE1 ---
SW faxed over referral for [facility] to start precert. Referral included demographic sheet, PT/OT notes, physician notes, labs, vitals, diagnostic imaging, and med list.
[2024-03-11] MEDS: 0.9 % SODIUM CHLORIDE 1,000 ML 1000 ML IV (14:37)
--- NOTE | 2024-03-11 14:40 | SWNOTE1 ---
SW confirmed with [facility] and precert has been started for pt to return to [facility].
[2024-03-11 15:13] VITALS: BP 120/62; PULSE 63; TEMP 36.3; O2SAT 94
[2024-03-11] MEDS: CEFTRIAXONE 1,000 MG in 0.9 % SODIUM CHLORIDE 50 ML 100 MG IV (16:43)
[2024-03-11 19:26] VITALS: BP 129/71; PULSE 74; TEMP 36.4; O2SAT 95
[2024-03-11 19:31] VITALS: O2SAT 95
[2024-03-11] MEDS: MIRTAZAPINE 15 MG TABLET 30 MG PO (20:06)
[2024-03-11] MEDS: QUETIAPINE FUMARATE 25 MG TABLET PO (20:06)
[2024-03-11] MEDS: TRAZODONE HCL 50 MG TABLET PO (20:07)
[2024-03-12] MEDS: LACTATED RINGER'S SOLUTION 1,000 ML 100 ML IV (00:45)
[2024-03-12] MEDS: LEVOTHYROXINE SODIUM 25 MCG TABLET 50 MCG PO (05:40)
[2024-03-12] MEDS: OXYCODONE HCL 5 MG TABLET PO (05:49)
[2024-03-12] MEDS: ACETAMINOPHEN 325 MG TABLET 650 MG PO (05:49)
[2024-03-12 05:58] VITALS: BP 113/66; PULSE 79; TEMP 36.8; O2SAT 91
[2024-03-12 06:12] LABS: Basophils Percent Auto 0.5 % (0.2-2.0); Eosinophils Absolute Auto 0.1 10^3/uL (0.0-0.7); Eosinophils Percent Auto 1.6 % (0.9-7.0); Hematocrit 35.5 % (36.0-48.0); Hemoglobin 11.7 g/dL (12.0-16.0); Immature Granulocytes Abs Auto 0.13 10^3/uL (0.00-0.03); Immature Granulocytes Pct Auto 2.1 % (0.0-0.5); Lymphocytes Absolute Auto 1.1 10^3/uL (1.2-3.8); Lymphocytes Percent Auto 18.2 % (20.5-60.0); Mean Corpuscular Hemoglobin 33.9 pg (26.7-34.0); Mean Corpuscular Volume 102.9 fL (81.0-99.0); Mean Platelet Volume 12.4 fL (9.5-13.5); Monocytes Absolute Auto 0.5 10^3/uL (0.3-0.8); Neutrophils Absolute Auto 4.3 10^3/uL (1.4-6.5); Neutrophils Percent Auto 69.6 % (43.0-75.0); Platelet Count 123 10^3/uL (150-450); Red Blood Count 3.45 10^6/uL (4.20-5.40); Red Cell Distribution Width 17.8 % (11.0-15.0); White Blood Count 6.2 10^3/uL (4.0-11.0)
[2024-03-12 06:32] LABS: Alanine Aminotransferase 50 U/L (14-59); Albumin Globulin Ratio 1.2; Albumin Level 2.8 g/dL (3.4-5.0); Alkaline Phosphatase 70 U/L (46-116); Anion Gap 13.2; Aspartate Amino Transferase 50 U/L (15-37); BUN Creatinine Ratio 27.5; Bilirubin Total 1.3 mg/dL (0.2-1.0); Calcium 8.4 mg/dL (8.5-10.1); Carbon Dioxide 25.7 mmol/L (21.0-32.0); Chloride 102 mmol/L (98-107); Estimated GFR (African America 48 (>=60 mL/min/1.73m^2); Estimated GFR (Non-African Ame 40 (>=60 mL/min/1.73m^2); Globulin 2.3 g/dL; Glucose 93 mg/dL (74-106); Sodium 138 mmol/L (136-145); Total Protein 5.1 g/dL (6.4-8.2)
[2024-03-12 06:37] LABS: Potassium 2.9 mmol/L (3.5-5.1)
[2024-03-12 07:52] VITALS: BP 104/66; PULSE 76; TEMP 36.6; O2SAT 92
[2024-03-12] MEDS: POTASSIUM CHLORIDE 40 MEQ in 0.9 % SODIUM CHLORIDE 250 ML 67.5 MEQ IV (08:20)
--- NOTE | 2024-03-12 09:23 | CM.NOTE ---
Rounds made with Dr. Maher, pt will discharge to [facility] for skilled therapy when medically stable.
--- NOTE | 2024-03-12 09:33 | REH.PTDLY ---
Physical Therapy Daily Note PT Daily Note/Assess Start: 03/11/24 10:58 Freq: Status: Active Protocol: Document 03/12/24 09:15 GAMALIELTIAN (Rec: 03/12/24 09:32 SUSAN [id number]) Physical Therapy Daily Note/Assessment Time In 08:55 Time Out 09:10 Subjective Pt awake upon arrival, agreeable to therapy. Therapeutic Exercise Minutes (minutes) 7 Therapeutic Exercise Units 1 Therapeutic Exercise Treatment Instructed in supine exs 10x ea with AP, QS, and AA SLR with B LEs. Pt needs verbal and tactile cues with exs. Once sitting instructed in B LE LAQ 5x2 ea with cues to maintain seated balance. Therapeutic Activity Minutes (minutes) 5 Therapeutic Activity Units 0 Therapeutic Activity Comments Max A x1-2 with supine to sit transfer. Cues for pt to move legs to EOB, but unable to without help. Cued pt to use bedrail to help sit up as well and push off of arm from bed, but no strength or effort noted when instructed. Once sitting pt requires several cues to maintain upright seated balance with pt wanting to lean to the L. Able to bring herself upright again with tactile cues and Min A. Requires Max A x2 with sit to supine transfer. Unable to stand at this time as pt does not follow cues for put forth any effort when asked to stand up, unsure if this is due to confusion or not. Total Therapy Minutes 12 Total Physical Therapy Units 1 Daily Note Summary Pt needs several cues throughout rx to follow tasks. Easily fatigued and wanting lay back down. Pt requires Max A x1-2 with transfers to EOB. Pt will need rehab at [place] as she cannot care for herself at this time.
--- NOTE | 2024-03-12 09:37 | SWNOTE1 ---
RYLAN let Rose and Sukumar at [facility] know that pt is medically stable for discharge. Rose did not hear anything back from insurance about precert. RYLAN to send updates.
--- NOTE | 2024-03-12 09:44 | SWNOTE1 ---
SW sent over PT note from today, labs, vitals, and nursing notes to [facility] for precert.
--- NOTE | 2024-03-12 10:13 | SWNOTE1 ---
Case management spoke to pt's insurance and pt does not need new precert, pt has 72 hours to return before new authorization is needed. SW called Rose at [facility] and the insurance called her as well. They are ready for pt to return at any time. Dr. Maher is aware as well and he stated he will re-check labs around 1:00 then set her up for discharge if good. SW let nurse know as well. RYLAN did ask nurse about kind of transport. Pt has not been able to get up and ambulate or out of bed, so stretcher is needed.
[2024-03-12] MEDS: POLYETHYLENE GLYCOL 3350 17 GM POWDER PACKET PO (10:34)
[2024-03-12] MEDS: POTASSIUM CHLORIDE 10 MEQ ER TABLET 40 MEQ PO (10:34)
[2024-03-12] MEDS: METOPROLOL TARTRATE 25 MG TABLET PO (10:34)
[2024-03-12] MEDS: SENNOSIDES 8.6 MG TABLET 17.2 MG PO (10:35)
[2024-03-12] MEDS: FOLIC ACID 1 MG TABLET PO (10:35)
[2024-03-12] MEDS: DULOXETINE HCL 60 MG CAPSULE.DR PO (10:35)
[2024-03-12] MEDS: MAGNESIUM OXIDE 400 MG TABLET PO (10:36)
[2024-03-12] MEDS: APIXABAN 5 MG TABLET PO (10:36)
[2024-03-12] MEDS: ONDANSETRON PF 4 MG/2 ML VIAL IV (10:49)
[2024-03-12] MEDS: 0.9 % SODIUM CHLORIDE 250 ML 10 ML IV (11:05)
[2024-03-12 11:27] VITALS: O2SAT 92
--- NOTE | 2024-03-12 11:32 | SWNOTE1 ---
SW called and set up [facility] for 2:30-2:45 for pt to return to the [facility]. SW let nurse and patient know time. Discharge orders are not in yet to be sent to [facility].
[2024-03-12 11:37] VITALS: BP 100/67; PULSE 71; TEMP 36.4; O2SAT 93
--- NOTE | 2024-03-12 12:20 | SWNOTE1 ---
RYLAN did call pt's son and notify him of discharge time as well. RYLAN took packet to the floor and advised nurse to fax over dc med rec to [facility] once it is completed.
[2024-03-12 13:22] LABS: Anion Gap 10.5; BUN Creatinine Ratio 24.1; Calcium 8.7 mg/dL (8.5-10.1); Carbon Dioxide 29.5 mmol/L (21.0-32.0); Chloride 102 mmol/L (98-107); Estimated GFR (African America 47 (>=60 mL/min/1.73m^2); Estimated GFR (Non-African Ame 39 (>=60 mL/min/1.73m^2); Glucose 105 mg/dL (74-106); Sodium 138 mmol/L (136-145)
--- NOTE | 2024-03-12 13:34 | SWNOTE1 ---
Pt is discharging to [facility] skilled today. SW sent over dc med rec to [facility].
--- NOTE | 2024-03-12 14:03 | SWNOTE1 ---
RYLAN received a call from [facility] and they are running a little late and will be here around 3:00. RYLAN let nurse know.
--- NOTE | 2024-03-12 14:17 | PC.NURSE ---
Report called to [facility]. pt coming per [place].
--- NOTE | 2024-03-12 14:31 | P.DS_ITS ---
DS: Providers Provider Date of admission: 03/10/24 16:46 Primary care physician: MANOJ CHAPMAN DO Admitting clinician: Shaikh Gunnar Attending physician on admission: Shaikh Gunnar Consults: 03/10/24 15:54 Occupational Therapy Eval and Treat Routine Reason for consultation: Ambulatory dysfunction/weakness Physical Therapy Eval and Treat Routine Reason for consultation: Ambulatory dysfunction/weakness Attending physician on discharge: Shaikh Gunnar Discharging clinician: Shaikh Gunnar Anticipated date of discharge: 03/12/24 DS: Diagnosis Discharge Diagnosis (1) Sepsis: Qualifiers: Sepsis type: sepsis due to unspecified organism Sepsis acute organ dysfunction status: with acute organ dysfunction Severe sepsis acute organ dysfunction type: acute renal failure Acute renal failure type: unspecified Severe sepsis shock status: without septic shock Qualified Code(s): A41.9 - Sepsis, unspecified organism; R65.20 - Severe sepsis without septic shock; N17.9 - Acute kidney failure, unspecified (2) Metabolic encephalopathy: (3) Acute kidney injury: (4) Acute UTI: (5) Hypokalemia: (6) Lactic acidosis: (7) Elevated troponin: (8) Transaminitis: (9) (HFpEF) heart failure with preserved ejection fraction: Qualifiers: Heart failure chronicity: chronic Qualified Code(s): I50.32 - Chronic diastolic (congestive) heart failure (10) HTN (hypertension): Qualifiers: Hypertension type: primary hypertension Qualified Code(s): I10 - Essential (primary) hypertension (11) Paroxysmal A-fib: (12) CAD (coronary artery disease): Qualifiers: Coronary Disease-Associated Artery/Lesion type: [place] artery [place] vs. transplanted heart: [place] heart Associated angina: without angina Qualified Code(s): I25.10 - Atherosclerotic heart disease of [place] coronary artery without angina pectoris (13) Hypothyroid: Qualifiers: Hypothyroidism type: unspecified Qualified Code(s): E03.9 - Hypothyroidism, unspecified (14) Morbid obesity: DS: Summary Hospital Course Hospital Course: 74 y o female came from acute rehab facility for change in mental status. Patient is a DNR CC, and was in acute rehab from recent hospital admission at [facility] for acute on chronic diastolic HF. She was discharged on oral bumex for it. Work up in ED revealed Sepsis sec to UTI with AMANDA, lactic acidosis and elevated troponin. Patient was started on IV fluids and IV Rocephin. It was felt that her acute kidney injury was likely because of overdiuresis. Her renal function improved throughout the course of admission along with her mental status that return to his baseline. She was evaluated by physical therapy and Occupational Therapy. She is medically stable for discharge today and will need oral Ceftin to finish the treatment course of UTI. With holding her oral Bumex for 1 week until her renal function completely recovers. She will need to be reassessed to resume oral Bumex as outpatient to avoid risk of dehydration and renal injury Status at Discharge Functional status at discharge: uses cane/walker Overall status at discharge: patient is progressing back to baseline Time Spent with Patient Time attestation: Total time spent providing and/or coordinating discharge services: Time spent: greater than 30 minutes Exam Constitutional Vital Signs, click to edit/add: Last Vital Signs Temp 97.5 F L 03/12/24 11:37 Pulse 71 03/12/24 11:37 Resp 20 03/12/24 11:37 BP 100/67 03/12/24 11:37 Pulse Ox 93 L 03/12/24 11:37 O2 Del Method Room Air 03/12/24 11:37 O2 Flow Rate 2 03/10/24 23:33 General appearance: cooperative, comfortable and ill appearing Nutritional appearance: obese Respiratory Common normals: normal respiratory effort, no use of accessory muscles and clear to auscultation bilaterally Effort & inspection: able to speak in complete sentences Cardio Common normals: regular rate, regular rhythm, S1 normal heart sound and S2 normal heart sound GI Common normals: soft to palpation, non-tender and no hepatosplenomegaly Inspection: abdominal distension Extremity Common normals: normal to inspection and full ROM Neuro Common normals: moves all extremities, no focal motor deficits and no sensory deficits noted Sensorium/orientation: orientation impaired Psych Common normals: cooperative, denies homicidal ideation and denies suicidal ideation Appearance: grossly normal Attitude: calm Speech: normal speech DS: Data Data Completed and Pending Labs on day of discharge: Labs from last 24 hours 03/12/24 03/12/24 12:58 06:04 WBC 6.2 RBC 3.45 L Hgb 11.7 L Hct 35.5 L MCV 102.9 H MCH 33.9 MCHC 33.0 RDW 17.8 H Plt Count 123 L MPV 12.4 Neut % (Auto) 69.6 Lymph % (Auto) 18.2 L [place] % (Auto) 8.0 Eos % (Auto) 1.6 Baso % (Auto) 0.5 Neut # (Auto) 4.3 Lymph # (Auto) 1.1 L [place] # (Auto) 0.5 Eos # (Auto) 0.1 Baso # (Auto) 0.0 Abs Immat Gran (auto) 0.13 H Imm/Tot Granulo (auto) 2.1 H Sodium 138 138 Potassium 4.0 2.9 L* Chloride 102 102 Carbon Dioxide 29.5 25.7 Anion Gap 10.5 13.2 BUN 32.0 H 36.0 H Creatinine 1.33 H 1.31 H Est GFR ( Amer) 47 L 48 L Est GFR (Non-Af Amer) 39 L 40 L BUN/Creatinine Ratio 24.1 27.5 Glucose 105 93 Calcium 8.7 8.4 L Total Bilirubin 1.3 H AST 50 H ALT 50 Alkaline Phosphatase 70 Total Protein 5.1 L Albumin 2.8 L Globulin 2.3 Albumin/Globulin Ratio 1.2 Preliminary micro results at discharge 03/10/24 15:34 Blood Culture Result 2 - Preliminary Blood NO GROWTH AT 36-48 HOURS. FINAL TO FOLLOW. 03/10/24 15:31 Blood Culture Result 1 - Preliminary Blood NO GROWTH AT 36-48 HOURS. FINAL TO FOLLOW. Discharge Plan Discharge Disposition: Xfer SNF Condition: Good Discharge Medications: New cefuroxime axetil 500 mg tablet 500 mg PO BID 7 Days Qty: 14 0RF Continued Eliquis 5 mg tablet 5 mg PO Q12H duloxetine 60 mg capsule,delayed release(DR/EC) 60 mg PO DAILY quetiapine 25 mg tablet 25 mg PO QPM atorvastatin 20 mg tablet 20 mg PO QPM folic acid 1 mg tablet 1 mg PO DAILY levothyroxine [Euthyrox] 50 mcg tablet 50 mcg PO DAILY magnesium oxide 400 mg magnesium tablet 400 mg PO DAILY metoprolol tartrate 25 mg tablet 25 mg PO Q12H polyethylene glycol 3350 [Miralax] 17 gram/dose powder 17 g PO DAILY mirtazapine 30 mg tablet 30 mg PO QPM sennosides [Natural Senna Laxative] 8.6 mg tablet 17.2 mg PO BID trazodone 50 mg tablet 50 mg PO QPM acetaminophen 325 mg capsule 650 mg PO Q4H PRN (Reason: fever or pain) bisacodyl [Laxative (bisacodyl)] 10 mg suppository 10 mg TN DAILY PRN (Reason: constipation) alprazolam [Xanax] 0.25 mg tablet 0.25 mg PO BID PRN (Reason: anxiety) Changed spironolactone 25 mg tablet 25 mg PO DAILY Qty: 0 0RF Discontinued bumetanide 2 mg tablet 2 mg PO .BIDAC Print Language: Icelandic Activity Restrictions/Additional Instructions: Hold Bumex for one one week so that her renal function is completely back to normal. Patient needs to be reassessed for the safe dose of diuretic if she needs it. [employer]ician Instructions: Discharge back to [facility]. Forms: Portal Instructions Follow Up Appointments: Follow up with PCP in one week
== END 2024-03-12 15:53 | DRG 871 ==
LOC: ER 15:26 → MS 03-11 07:15
PROVIDERS: Physician Assistant; Admitting Provider Internal Medicine; Emergency Provider Emergency Medicine; PCP Family Medicine; Visit Provider Internal Medicine
DX: A41.9 Sepsis, unspecified organism (principal); G93.41 Metabolic encephalopathy; N17.9 Acute kidney failure, unspecified; N39.0 Urinary tract infection, site not specified; E87.20 Acidosis, unspecified; I50.32 Chronic diastolic (congestive) heart failure; Z68.41 Body mass index [BMI] 40.0-44.9, adult; I11.0 Hypertensive heart disease with heart failure; R65.20 Severe sepsis without septic shock; Z66 Do not resuscitate; E87.6 Hypokalemia; I25.10 Atherosclerotic heart disease of native coronary artery without angina pectoris; I48.0 Paroxysmal atrial fibrillation; E03.9 Hypothyroidism, unspecified; E66.01 Morbid (severe) obesity due to excess calories; E86.0 Dehydration; E86.1 Hypovolemia; K76.0 Fatty (change of) liver, not elsewhere classified; R74.01 Elevation of levels of liver transaminase levels; R79.89 Other specified abnormal findings of blood chemistry; Z79.890 Hormone replacement therapy; Z79.01 Long term (current) use of anticoagulants; Z79.899 Other long term (current) drug therapy; Z88.0 Allergy status to penicillin; Z88.2 Allergy status to sulfonamides; Z88.8 Allergy status to other drugs, medicaments and biological substances; M25.571 Pain in right ankle and joints of right foot; S89.391A Other physeal fracture of lower end of right fibula, initial encounter for closed fracture
CPT/HCPCS: 36415; 51702; 51798; 70450; 71045; 73610; 74018; 76705; 80048; 80053; 81001; 82140; 82800; 83605; 84439; 84443; 84481; 84484; 85025; 85610; 87040; 87086; 87150; 87186; 93005; 94761; 96361; 96365; 97110; 97163; 97165; 97535; 99285; J0696; J2405; J3480